=== PATIENT | female | born 1950 | race Two or more races ===

== ENCOUNTER 2021-06-27 14:19 | Emergency (ER) | payer OTHER ==
[~2021-06-27] VITALS: Ht 167.6 cm; Wt 81.6 kg
[2021-06-27] MEDS ORDERED: COLESTID1 GM PO (14:48)
[2021-06-27] MEDS ORDERED: PROTONIX40 M1 PO (14:48)
[2021-06-27] MEDS ORDERED: ZESTORETIC 10-1 EACH PO (14:49)
[2021-06-27] MEDS ORDERED: ATIVAN0.5 M1 PO (14:49)
[2021-06-27] MEDS ORDERED: EFFEXOR XR75 MG PO (14:49)
== END 2021-06-27 21:18 | disposition home or self-care (01) ==
LOC: ER 14:19
DX: K21.9 Gastro-esophageal reflux disease without esophagitis (principal); K29.70 Gastritis, unspecified, without bleeding; Z88.0 Allergy status to penicillin

== ENCOUNTER 2021-07-29 19:08 | Emergency (ER) | payer OTHER ==
[~2021-07-29] VITALS: Ht 167.6 cm; Wt 81.6 kg
[~2021-07-29 19:08] MED LIST: ATIVAN0.5 M1 PO; COLESTID1 GM PO; EFFEXOR XR75 MG PO; PROTONIX40 M1 PO; ZESTORETIC 10-1 EACH PO
[2021-07-29] MEDS ORDERED: GLUMETZA500 MG (19:30)
== END 2021-07-29 22:19 | disposition home or self-care (01) ==
LOC: ER 19:08
DX: K29.00 Acute gastritis without bleeding (principal); Z79.84 Long term (current) use of oral hypoglycemic drugs; Z88.0 Allergy status to penicillin; E86.0 Dehydration